=== PATIENT | male | born 1970 | race Caucasian/White ===

== ENCOUNTER 2020-09-18 13:54 | Emergency (ER) | payer OTHER ==
[~2020-09-18 13:54] MED LIST: NORCO 5-325 TA1 EACH PO; SILVADENE CREAM20 GM TOP; ZOFRAN ODT 4 MG4 MG PO
[2020-09-18] MEDS ORDERED: HYDROCODON-ACE1 EAC4 PO (14:51)
== END 2020-09-18 14:56 | disposition home or self-care (01) ==
LOC: ER1 13:54
DX: S50.02XA Contusion of left elbow, initial encounter (principal); M79.632 Pain in left forearm; E11.9 Type 2 diabetes mellitus without complications; Z88.0 Allergy status to penicillin; W20.8XXA Other cause of strike by thrown, projected or falling object, initial encounter; Y92.009 Unspecified place in unspecified non-institutional (private) residence as the place of occurrence of the external cause
CPT/HCPCS: 73060; 73080; 73090; 99283

== ENCOUNTER 2020-12-06 15:20 | Emergency (ER) | payer OTHER ==
[~2020-12-06 15:20] MED LIST changes: +HYDROCODON-ACE1 EAC4 PO
[2020-12-06 18:58] LABS: HEMOGLOBIN 14.7 gm/dl (14.0-17.5); RED BLOOD COUNT 4.68 M/UL (4.20-5.50); WHITE BLOOD COUNT 6.5 K/UL (4.5-11.0)
[2020-12-06 19:14] LABS: BUN/CREATININE RATIO 13 (0-10)
== END 2020-12-06 21:59 | disposition home or self-care (01) ==
LOC: ER1 15:20
PROVIDERS: Family Medicine
DX: K46.9 Unspecified abdominal hernia without obstruction or gangrene (principal); E03.9 Hypothyroidism, unspecified; E10.9 Type 1 diabetes mellitus without complications
CPT/HCPCS: 80053; 83690; 85025; 99284; Q9967

== ENCOUNTER 2021-02-27 14:19 | Emergency (ER) | payer OTHER ==
[~2021-02-27] VITALS: Ht 188 cm; Wt 121.1 kg
[2021-02-27 15:38] LABS: HEMOGLOBIN 15.2 gm/dl (14.0-17.5); RED BLOOD COUNT 4.74 M/UL (4.20-5.50); WHITE BLOOD COUNT 5.3 K/UL (4.5-11.0)
[2021-02-27 16:11] LABS: BUN/CREATININE RATIO 15 (0-10)
[2021-02-27] MEDS ORDERED: ZOFRAN ODT 4 MG4 MG SL (17:19)
== END 2021-02-27 18:40 | disposition home or self-care (01) ==
LOC: ER1 14:19
PROVIDERS: Emergency Medicine
DX: Z23 Encounter for immunization (principal); U07.1 COVID-19; E11.65 Type 2 diabetes mellitus with hyperglycemia; Z88.0 Allergy status to penicillin; Z79.899 Other long term (current) drug therapy
CPT/HCPCS: 71045; 80053; 85025; 99283; M0243